=== PATIENT | male | born 1950 | race Caucasian/White ===

== ENCOUNTER 2021-10-01 01:19 | Day surgery (SDC) | payer MEDICARE, SELFPAY ==
[2021-09-15 13:30] VITALS: BMI 31.1
--- NOTE | 2021-09-30 14:01 | PM.HPGS ---
History of Present Illness History of Present Illness Consent: Risks, benefits, and alternatives have been discussed and questions answered. Patient agrees to proceed with procedure. Chief complaint: neoplasm screening Narrative: Miles Valadez is a 71 year old male Referred for colon cancer screening.Last colonoscopy was 13 years ago. He occassionalyhas a sensation that there is a blockage in his rectum as if stool does not want to pass. Review of Systems Review of Systems: All systems reviewed & are unremarkable except as noted in HPI and below PMFSH Surgical History Surgical History History of penile implant History of radical prostatectomy Status post aortic valve replacement with bioprosthetic valve Family History Family History Sibling Patient's sister is in good health Patient's brother is in good health Family history of malignant neoplasm Malignant neoplasm of prostate Family history of malignant neoplasm of breast in first degree relative Family history of malignant neoplasm of ovary Father Family history of lung cancer Mother Family history of coronary artery disease Other Carcinoma of colon Family history of malignant neoplasm of male breast Social History Social History Smoking packs per day: 2 Smoking cigarettes per day: 40.0 Years smoked: 2 Smoking pack-years: 4.00 Smoking status: Former smoker Tobacco type: cigarettes Second hand tobacco smoke exposure: No Smoking end date: 05/01/74 Alcohol intake: current Drinks per week: 3 Alcohol use details: occasional beer Substance use: never Substance use type: does not use Living arrangements: with family Gender identity (if verbalized by the patient): Male Spiritual care concerns: No Meds Home Medications and Allergies Home Medications Medication Instructions Recorded Confirmed Type albuterol sulfate 90 mcg/actuation 1 puff inhalation Q4H PRN Dyspnea 03/22/19 09/15/21 History aerosol inhaler (ProAir HFA) aspirin 81 mg tablet,delayed 81 mg PO DAILY 03/22/19 09/15/21 History release modafinil 200 mg tablet 200 mg PO QAM 03/22/19 09/15/21 History metoprolol succinate 25 mg 25 mg PO DAILY 09/24/19 09/15/21 History tablet,extended release 24 hr Allergies Allergy/AdvReac Type Severity Reaction Status Date / Time No Known Allergies Allergy Verified 10/01/21 06:45 Exam Resp: Auscultation: clear to auscultation bilaterally Cardio: Rate: regular rate Rhythm: regular rhythm GI: GI Palp: Yes Soft to palpation and No Tenderness to palpation present (GI) Assessment and Plan Assessment and plan (1) Colon cancer screening: Code(s): Z12.11 - Encounter for screening for malignant neoplasm of colon Status: Acute Assessment and Plan: Colonoscopy with possible biopsy or polypectomy or cautery or injection of substances.
[2021-10-01 06:46] VITALS: BP 115/78; PULSE 70; RESP 19; TEMP 36.6; O2SAT 98
[2021-10-01] MEDS: LACTATED RINGERS 1,000 ML 150 ML IV CONT (07:06)
[2021-10-01] MEDS: GENTAMICIN 80MG/SOD CHL 50 ML 80 MG/50 ML BAG 100 MG IVPB (07:07)
[2021-10-01] MEDS: AMPICILLIN 2 GM/NS 100 ML 2 GM/100 ML BAG IVPB (07:34)
--- NOTE | 2021-10-01 07:34 | WPDANESEPPF ---
Anes - Initial Pre Proc Eval Procedure: Operation Date: 10/01/21 08:00 Proposed Procedures p Screening Colonoscopy - Danilo Pickering MD Date/Time: 10/01/21 07:34 Surgeon: Danilo Pickering MD Pre Op Diagnosis: neoplasm screening Patient Data Age: 71 Gender: M Height: 1.8 m Weight: 96.1 kg Last Vital Signs Temp 97.9 F 10/01/21 06:46 Pulse 70 10/01/21 06:46 Resp 19 10/01/21 06:46 BP 115/78 10/01/21 06:46 Pulse Ox 98 10/01/21 06:46 O2 Del Method Room Air 10/01/21 06:46 Allergies Allergy/AdvReac Type Severity Reaction Status Date / Time No Known Allergies Allergy Verified 10/01/21 06:45 Home Medications Medication Instructions Recorded Confirmed Type albuterol sulfate 90 mcg/actuation 1 puff inhalation Q4H PRN Dyspnea 03/22/19 09/15/21 History aerosol inhaler (ProAir HFA) aspirin 81 mg tablet,delayed 81 mg PO DAILY 03/22/19 09/15/21 History release modafinil 200 mg tablet 200 mg PO QAM 03/22/19 09/15/21 History metoprolol succinate 25 mg 25 mg PO DAILY 09/24/19 09/15/21 History tablet,extended release 24 hr Patient hx anesthesia problems: none Family hx anesthesia problems: none Results Review: All pre-operative results and documents have been reviewed as part of the pre-operative evaluation. [facility] Surgical History Surgical History History of penile implant History of radical prostatectomy Status post aortic valve replacement with bioprosthetic valve Family History Family History Sibling Patient's sister is in good health Patient's brother is in good health Family history of malignant neoplasm Malignant neoplasm of prostate Family history of malignant neoplasm of breast in first degree relative Family history of malignant neoplasm of ovary Father Family history of lung cancer Mother Family history of coronary artery disease Other Carcinoma of colon Family history of malignant neoplasm of male breast Social History Social History Smoking packs per day: 2 Smoking cigarettes per day: 40.0 Years smoked: 2 Smoking pack-years: 4.00 Smoking status: Former smoker Tobacco type: cigarettes Second hand tobacco smoke exposure: No Smoking end date: 05/01/74 Alcohol intake: current Drinks per week: 3 Alcohol use details: occasional beer Substance use: never Substance use type: does not use Living arrangements: with family Gender identity (if verbalized by the patient): Male Spiritual care concerns: No Anes - Eval Final PreProcedure Day of Procedure 10/01/21 07:34 Patient weight: overweight Heart: regular rate and rhythm Lungs: clear to auscultation Airway: Mallampati scale class II Neurological: alert and oriented Last oral intake: >/= 8 hours ASA classification: III Emergent: no Anesthetic plan: proceed Anesthesia type and monitoring: general GIVS and standard monitoring Results Review: All pre-operative results and documents have been reviewed as part of the pre-operative evaluation. Informed Consent: The patient's anesthetic plan and its attendant risks and benefits were discussed with the patient/family/POA. Questions were solicited and answers provided to the satisfaction of the patient/family/POA.
[2021-10-01 08:12] VITALS: BP 96/68; PULSE 72; RESP 17; O2SAT 93
[2021-10-01 08:22] VITALS: BP 99/71; PULSE 62; RESP 16; O2SAT 97
[2021-10-01 08:32] VITALS: BP 114/75; PULSE 63; RESP 19; O2SAT 100
== END 2021-10-01 08:43 | disposition home or self-care (01) ==
PROVIDERS: PCP Family Medicine; Visit Provider Internal Medicine Gastroenterology
PROC: 0DJD8ZZ Inspection of Lower Intestinal Tract, Via Natural or Artificial Opening Endoscopic (ICD-10-PCS; CPT 45378; principal; 2021-10-01 08:00)
DX: Z12.11 Encounter for screening for malignant neoplasm of colon (principal); K62.1 Rectal polyp; K64.8 Other hemorrhoids; Z79.82 Long term (current) use of aspirin; Z79.51 Long term (current) use of inhaled steroids; Z95.2 Presence of prosthetic heart valve; Z87.891 Personal history of nicotine dependence
CPT/HCPCS: G0121; 88305; J0290; J1580; J2704; J7120

== ENCOUNTER 2023-12-05 13:52 | Outpatient (CLI) | payer MEDICARE, SELFPAY ==
--- NOTE | 2023-12-05 14:18 | ECG_ITS ---
Test Date: 2023-12-05 14:36:06 Measurements Intervals [place] Rate: 73 P: 59 CA: 186 QRS: -45 QRSD: 95 T: 62 QT: 364 QTc: 401 Interpretive Statements SINUS RHYTHM LEFT ANTERIOR FASCICULAR BLOCK [QRS AXIS <= -45, QR IN I, RS IN II] NONSPECIFIC T-WAVE ABNORMALITY No previous ECG available for comparison Electronically Signed On 12-05-2023 14:52:37 CDT by Reynold Villa M.D.
[2023-12-05 14:56] LABS: Basophils Percent Auto 0.5 % (0.2-1.2); Eosinophils Absolute Auto 0.2 K/mm3 (0-0.3); Hematocrit 52.1 % (42.0-52.0); Hemoglobin 16.8 g/dL (14.0-18.0); Immature Granulocyte Absolute 0.05 K/mm3 (0.00-0.031); Immature Granulocyte Percent A 0.6 % (0-0.5); Lymphocytes Absolute Auto 1.49 K/mm3 (0.9-3.2); Lymphocytes Percent Auto 19.3 % (18.3-44.2); Mean Corpuscular HGB Conc 32.2 g/dl (32-36); Mean Corpuscular Hemoglobin 29.8 pg (26-34); Mean Corpuscular Volume 92.4 fl (80-100); Monocytes Absolute Auto 0.7 K/mm3 (0.1-0.6); Monocytes Percent Auto 9.2 % (2.6-8.5); Neutrophils Absolute Auto 5.2 K/mm3 (1.3-6.7); Neutrophils Percent Auto 67.4 % (45.5-73.1); Platelet Count Result 137 k/mm3 (150-375); Red Blood Count 5.64 M/mm3 (4.6-6.20); Red Cell Distribution Width 13.5 % (11.5-14.5); White Blood Count 7.7 K/mm3 (4.5-10.0)
[2023-12-05 15:00] LABS: Anion Gap 9 mmol/L (4-12); Blood Urea Nitrogen 21 mg/dL (9-20); Calcium 9.2 mg/dL (8.4-10.2); Carbon Dioxide 28 mmol/L (22-30); Chloride 100 mmol/L (98-107); Estimated Glomerular Filt Rate 54; Glucose 101 mg/dL (65-110); Potassium 4.2 mmol/L (3.4-5.0); Sodium 137 mmol/L (137-145)
== END 2023-12-05 13:53 | disposition home or self-care (01) ==
LOC: ANHSURGERY 13:55
PROVIDERS: PCP Family Medicine; Visit Provider Surgery
DX: K64.8 Other hemorrhoids (principal); Z95.3 Presence of xenogenic heart valve; I44.4 Left anterior fascicular block
CPT/HCPCS: 36415; 80048; 85025; 93005

== ENCOUNTER 2023-12-06 00:40 | Day surgery (SDC) | payer MEDICARE, SELFPAY ==
[2023-12-04 14:25] VITALS: BMI 31.3
--- NOTE | 2023-12-04 14:35 | PC.NURSE ---
Report to the Outpatient Waiting Room, entrance under the green pavilion located off [facility], at time _0800_ on date _[id number]_. Planned Procedure Time: _1000_. Time changes happen often and if your time is changed the preop area will call you the afternoon before. - You and your visitor will be asked to self-screen and do not enter if you have any COVID symptoms. - A mask is optional within the hospital at this time. Clear liquids only tomorrow (Monday) then nothing to eat or drink after midnight day of surgery. Ducolax 5mg take 2 tablets Monday night and again Monday night. Fleets enema Monday and again Monday before coming to hospital. Take the following medications with a SIP of water the morning of surgery: ___None DO NOT STOP ANY OF YOUR OTHER PRESCRIPTION MEDICATIONS PRIOR TO SURGERY ?EXCEPT THE FOLLOWING Medications to discontinue per physician None Please no make-up, nail irish, hairspray, perfume, deodorant, or body powder the day of surgery. No jewelry (including any body piercings) or valuables the day of surgery, leave them at home. Please take a shower or bath the night before, or the morning of, surgery with an antibacterial soap. Wear comfortable, loose fitting clothing. - Jewelry must be removed prior to entering the operating room. Rings and piercings that are not removed may be cut off. - The hospital will not accept responsibility for valuables. - Please leave all valuables, including medications, at home the day of surgery. If you are going home after surgery, a licensed regional company hazmat tanker driver must drive you home. - NO public transportation without another adult if you receive anesthesia. - We recommend that an adult stay with you for 24 hours following discharge. - We also recommend that you do not drive, make important decision, drink alcoholic beverages, or take any drugs that were not prescribed by your health care provider for at least 24 hours after your discharge time. Follow any additional instructions given to you from your surgeon. If you or anyone in your household have experienced Covid symptoms in the past week, please notify your surgeon or the nurse liaison at the phone number below for possible testing. Telephone instructions given to __Miles and Thea___and asked if any additional questions and then verbalized understanding. Patient advised to call surgeon office or pre surgery nurse liaison [phone] if any additional questions.
[2023-12-06] VITALS (7 sets, daily range): BP systolic 91–136; BP diastolic 44–81; PULSE 65–80; RESP 12–18; TEMP 36.1–36.3; O2SAT 94–100
[2023-12-06] MEDS: ACETAMINOPHEN 500 MG TABLET 1000 MG PO (08:30)
[2023-12-06] MEDS: KETOROLAC 15 MG/ML VIAL (*BKC) IV PUSH (08:30)
[2023-12-06] MEDS: LACTATED RINGERS 1,000 ML 30 ML IV CONT (08:30)
--- NOTE | 2023-12-06 09:39 | WPDANESEPPF ---
Anes - Initial Pre Proc Eval Procedure: Operation Date: 12/06/23 10:00 Proposed Procedures p Proctosigmoidoscopy, Rubberband Ligation Internal Hemorrhoids - Aj Polo MD Date/Time: 12/06/23 09:39 Surgeon: Aj Polo MD Pre Op Diagnosis: Prolapse Internal Hemorrhoids Patient Data Age: 73 Gender: M Height: 1.8 m Weight: 96 kg Last Vital Signs Temp 36.1 C L 12/06/23 08:30 Pulse 80 12/06/23 08:30 Resp 14 12/06/23 08:30 BP 121/75 12/06/23 08:30 Pulse Ox 94 12/06/23 08:30 O2 Del Method Room Air 12/06/23 08:30 Allergies Allergy/AdvReac Type Severity Reaction Status Date / Time No Known Allergies Allergy Verified 12/04/23 14:23 Home Medications Medication Instructions Recorded Confirmed Type albuterol sulfate 90 mcg/actuation 1 puff inhalation Q4H PRN Dyspnea 03/22/19 12/04/23 History aerosol inhaler (ProAir HFA) Patient hx anesthesia problems: none Family hx anesthesia problems: none Results Review: All pre-operative results and documents have been reviewed as part of the pre-operative evaluation. [facility] Surgical History Surgical History History of penile implant History of radical prostatectomy Status post aortic valve replacement with bioprosthetic valve Family History Family History Sibling Patient's sister is in good health Patient's brother is in good health Family history of malignant neoplasm Malignant neoplasm of prostate Family history of malignant neoplasm of breast in first degree relative Family history of malignant neoplasm of ovary Father Family history of lung cancer Mother Family history of coronary artery disease Other Carcinoma of colon Family history of malignant neoplasm of male breast Social History Social History Smoking packs per day: 2 Smoking cigarettes per day: 40.0 Years smoked: 2 Smoking pack-years: 4.00 Smoking status: Former smoker Tobacco type: cigarettes Second hand tobacco smoke exposure: No Smoking end date: 12/03/70 Alcohol intake: current Drinks per week: 3 Alcohol use details: occasional beer Substance use: never Substance use type: does not use Living arrangements: with family Occupation/Education: retired Gender identity (if verbalized by the patient): Male Spiritual care concerns: No Anes - Eval Final PreProcedure Day of Procedure 12/06/23 09:39 Patient weight: overweight Heart: regular rate and rhythm Lungs: decreased breath sounds Airway: Mallampati scale class II Neurological: alert and oriented Last oral intake: >/= 8 hours ASA classification: III Emergent: no Anesthetic plan: proceed Anesthesia type and monitoring: general ETT and standard monitoring Results Review: All pre-operative results and documents have been reviewed as part of the pre-operative evaluation. Informed Consent: The patient's anesthetic plan and its attendant risks and benefits were discussed with the patient/family/POA. Questions were solicited and answers provided to the satisfaction of the patient/family/POA.
--- NOTE | 2023-12-06 09:45 | WPDHPUPDATE1 ---
History and Physical Update Update Date/Time: 12/06/23 09:45 History and Physical has been reviewed, including an updated exam of the patient. There are NO changes in the patient's condition. Risks, benefits, and alternatives have been discussed and questions answered. Patient agrees to proceed with procedure.
[2023-12-06] MEDS: ceFAZolin 2 GM/D5W 50 ML 2 GM/50 ML BAG IVPB (10:02)
--- NOTE | 2023-12-06 10:46 | P.OP_ITS ---
Procedure Note - Detailed Date of Procedure 12/06/23 Pre-op Diagnosis Prolapse Internal Hemorrhoids Post-op Diagnosis Same Procedure Performed Proctosigmoidoscopy with biopsy, rubber-band ligation internal hemorrhoid Surgeon Aj Polo MD Application Support Manager Rhoda Anesthesia General Indications Patient has had a prolapsing bleeding internal hemorrhoid for quite some time. When I saw him in the office it appeared this was on the left lateral position. He is taken to surgery now for rectal exam under anesthesia, proctosigmoidoscopy, and rubber-band ligation of an internal hemorrhoid. Findings Proctosigmoidoscopy to 20 cm was negative other than the hemorrhoid. The internal hemorrhoid was actually on the right posterior position and was higher than what is typically seen. It was quite large as well. I did go ahead and biopsy the hemorrhoid to ensure it was not a polyp. Description of Procedure Patient was taken to surgery and induced into general anesthesia. He was turned into a prone kathya-knife position and the buttocks taped apart. Prep and drape was carried out. Using the Hill-Donohue anoscope I evaluated the distal rectum. As noted above, the large internal hemorrhoid was more proximal than I was expecting and seemed to be close to the rectal mucosal junction. I did go ahead and rubber-band ligate the hemorrhoid as planned. I then used the rigid proctosigmoidoscope. The patient was scoped to 20 cm. The only pathology seen was the large internal hemorrhoid in the right posterior position. I did go ahead and use alligator forceps to get a couple of biopsies of this. There was minimal bleeding. I removed the proctoscope and then again used Hill-Donohue anoscope. It was clear that I had biopsied the internal hemorrhoid that had been rubber-band ligated. The rubber band was still intact and bleeding was nearly stopped. We then removed the Hill-Donohue anoscope. Her rectum was dressed with Xeroform gauze fluffs and tape. Patient was returned to a supine position and awakened, then extubated. He was taken to recovery in good condition. Sponge and needle counts were correct x2. Estimated Blood Loss -5 Pathology Yes (Biopsy distal rectal mucosal mass, suspected to be internal hemorrhoid) Complications None Condition Stable Disposition PACU [facility] Billing Surgery - Charge Forward: Surgery Billing (Proctosigmoidoscopy with biopsy, rubber-band ligation internal hemorrhoid)
== END 2023-12-06 12:28 | disposition home or self-care (01) ==
PROVIDERS: PCP Family Medicine; Visit Provider Surgery
PROC: (CPT 45305; principal; 2023-12-06 10:00)
DX: K64.8 Other hemorrhoids (principal); Z95.2 Presence of prosthetic heart valve; Z79.51 Long term (current) use of inhaled steroids
CPT/HCPCS: 45305; 46221; 88305; A9270; J0330; J0690; J1100; J1170; J1885; J2250; J2405; J2704; J3010; J7120